=== PATIENT | male | born 1990 | race Caucasian/White ===

== ENCOUNTER 2017-05-08 21:52 | Emergency (ER) | payer MEDICAID ==
[~2017-05-08] VITALS: Ht 182.9 cm; Wt 74.8 kg
--- NOTE | 2017-05-08 22:50 | NUR ---
Pt ambulated to room with steady gait. Pt c/o dental pain and facial swelling to right lower jaw started today. Pt resting in position of comfort for self. Awaiting further eval.
--- NOTE | 2017-05-08 23:04 | NUR ---
Dr. Mittal at bedside for MSE
[2017-05-08] MEDS ORDERED: MISCELLANEOUS MED XX ONE (23:15)
--- NOTE | 2017-05-08 23:21 | NUR ---
Pt given ABT injection, will monitor for any adverse reactions.
[2017-05-08] MEDS ORDERED: PENICILLIN G BENZATHINE 2.4 MMU/4 ML DISP.SYRIN IM ONE (23:32)
--- NOTE | 2017-05-08 23:44 | NUR ---
No adverse reaction noted. Pt stable for discharge per Dr. Mittal. Pt given ACI. Pt verbalized understanding of dc instructions. Pt ambulated out of ER with steady gait.
[2017-05-08 23:49] VITALS: BP 120/70
== END 2017-05-08 23:49 | disposition home or self-care (01) ==
LOC: ER 21:53
DX: K02.9 Dental caries, unspecified (principal); F17.200 Nicotine dependence, unspecified, uncomplicated
CPT/HCPCS: A4663